=== PATIENT | female | born 1955 | race Caucasian/White ===

== ENCOUNTER 2019-03-15 12:25 | Emergency (ER) | payer OTHER, SELFPAY ==
[2019-03-15 12:26] VITALS: BP 135/93; PULSE 100; RESP 18; TEMP 36.4; O2SAT 98; BMI 32.3
--- NOTE | 2019-03-15 12:44 | ED.VIS.GEN ---
History of Present Illness Chief Complaint: Laceration Detail of Chief Complaint: Fall Informant: Patient Onset: Today Current Severity: Mild Maximum Severity: Mild Narrative: Patient was at work today when her shoe caught on the floor and she fell face forward. She is a laceration along the vermilion border of the left upper lip. She does have a corresponding intraoral laceration. She has some teeth that are slightly loose. No dental avulsion. She is an abrasion to her forehead and a small area of ecchymosis to her right wrist. Patient denies loss of consciousness or neck pain. She is not on anticoagulants. Past Medical History - Allergies and Home Meds Allergies/Adverse Reactions: Allergies No Known Allergies Allergy (Verified 03/15/19 12:28) Primary Care Physician: Clive Edgar MD [Primary Care Provider] - Prior records reviewed: Yes Past Medical History: - - Reviewed Review of Systems General: Denies: Chills, Fever Eyes: Denies: Visual changes - bilaterally ENT: Reports: - - Lip laceration. Denies: Bilateral ear pain Cardiovascular: Denies: Chest pain Respiratory: Denies: Dyspnea, Cough Gastrointestinal: Denies: Abdominal pain, Nausea, Vomiting, Diarrhea Musculoskeletal: Denies: Neck pain Skin: Reports: - - Laceration Neurological: Denies: Weakness, Parasthesia Hematologic: Denies: Easy bruising, Easy bleeding Allergy: Denies: Uticaria Physical Exam Vital Signs/Narrative: Vital Signs Temp Pulse Resp BP Pulse Ox 03/15/19 12:26 97.6 F L 100 18 135/93 H 98 Inital Vital Signs reviewed: Yes General: Well nourished, Well developed Head: Trauma - 1/2 cm laceration along the milium border of the left upper lip. There is a 1 cm intraoral laceration opposing this. I do believe she is a through and through injury. Eyes: Perrl, EOMI ENT: - - Left maxillary lateral incisor and canine are slightly loose. Neck: Supple Cardiovascular: Regular rate, Regular rhythm Respiratory: No distress, CTA bilaterally Abdomen: Soft, Nontender, Nondistended Extremities: - - Small area of ecchymosis to the volar right wrist. No bony tenderness with full range of motion. Skin: - - Laceration as above Neurological: Alert, Oriented x3, Normal Strength, Normal Sensation Psychological: Normal affect Diagnostic/Tx/Re-eval - Medical Decision Making Left outer lip laceration was sutured after skin was anesthetized with 0.5 cc 1% lidocaine. 2 simple interrupted sutures with 5-0 Vicryl were placed. Patient will be given a short course of Pen-Vee K to prevent infection. We discussed the importance of rinsing her mouth to keep the intraoral laceration clean. She will follow soft diet secondary to her loose teeth. ED Disposition - Plan for ED Patient: Disposition: Home or Assisted Living Diagnosis: Fall, Lip laceration Instructions: LACERATION, Lip/Mouth Prescriptions: Penicillin Vk [Pen-Vee K 250MG] 500 mg PO 4X/DAY #3 days Referrals: Clive Edgar MD [Primary Care Provider] - 1 Week if not improving
[2019-03-15] MEDS: Diphth,Pertuss(Acell),Tet Vac 0.5 ML Vial IM (12:59)
[2019-03-15 13:58] VITALS: BP 120/97; PULSE 72; RESP 18; O2SAT 97
== END 2019-03-15 13:59 | disposition home or self-care (01) ==
PROVIDERS: Emergency Provider Emergency Medicine; Family Provider Family Medicine; PCP Family Medicine
DX: S01.511A Laceration without foreign body of lip, initial encounter (principal); S01.512A Laceration without foreign body of oral cavity, initial encounter; S00.81XA Abrasion of other part of head, initial encounter; S60.211A Contusion of right wrist, initial encounter; W19.XXXA Unspecified fall, initial encounter; Y93.9 Activity, unspecified; Y92.9 Unspecified place or not applicable
CPT/HCPCS: 12011; 90471; 90715; 99283